=== PATIENT | male | born 1995 | race Hispanic/Latino ===

== ENCOUNTER 2024-10-28 13:58 | Emergency (ER) | payer OTHER ==
[~2024-10-28] VITALS: Ht 175.3 cm; Wt 77.6 kg
--- NOTE | 2024-10-28 14:07 | ERN ---
ED Note History of Present Illness Stated Complaint: DIARRHEA Chief Complaint: Diarrhea Time Seen by MD: 14:02 Dictation: PATIENT IS A 29-YEAR-OLD MALE WHO IS A RETIRED COMING IN WITH COMPLAINTS OF LEFT LOWER QUADRANT PAIN WITH DIARRHEA FOR TWO DAYS. HE STATES HE HAS HAD NO FEVER NO CHILLS HOWEVER STATES HE CAN NOT KEEP ANY FOOD DOWN BECAUSE WHEN HE EATS HE HAS DIARRHEA. HE STILL IS ON AZITHROMYCIN FOR BEING TREATED BY [facility] [employer] FOR STREPTOCOCCAL PHARYNGITIS FIVE DAYS AGO. Allergies: Coded Allergies: No Known Drug Allergies (Unverified Allergy, Unknown, 10/28/24) Home Meds Active Scripts Dicyclomine HCl (Bentyl) 20 Mg Tab, 20 MG PO Q6HPRN PRN for ABDOMINAL CRAMPING/PAIN, #20 TAB Prov:ALEXI CARDONA CLINICAL ASSISTANT PROFESSOR 10/28/24 Past Medical History Past Medical History: No Pertinent History Surgical History: None RN Note Reviewed/Agreed w/PFSH: Yes Review of System Dictation CONSTITUTIONAL: NEGATIVE EXCEPT FOR HPI HEAD/FACE: NEGATIVE EXCEPT FOR HPI EENT: NEGATIVE EXCEPT FOR HPI RESPIRATORY: NEGATIVE EXCEPT FOR HPI GASTROINTESTINAL/ABDOMINAL: NEGATIVE EXCEPT FOR HPI LEFT LOWER QUADRANT PAIN WITH DIARRHEA GENITOURINARY: NEGATIVE EXCEPT FOR HPI MUSCULOSKELETAL: NEGATIVE EXCEPT FOR HPI INTEGUMENTARY: NEGATIVE EXCEPT FOR HPI NEUROLOGICAL/PSYCH: NEGATIVE EXCEPT FOR HPI HEMATOLOGIC/LYMPHATIC: NEGATIVE EXCEPT FOR HPI ALL SYSTEMS NEGATIVE, EXCEPT NOTED ABOVE. 13 POINT REVIEW OF SYSTEMS ASSESSED AND ALL NEGATIVE EXCEPT FOR ABOVE. Initial Vital Sign VS Vital Signs Date Time Temp Pulse Resp B/P (MAP) Pulse Ox O2 Delivery O2 Flow Rate FiO2 10/28/24 14:02 98.4 78 19 139/82 98 Room Air 0 10/28/24 18:29 21 Physical Exam Dictation VITAL SIGNS REVIEWED GENERAL APPEARANCE: ALERT, ORIENTED X 3, MY ACUTE DISTRESS, WELL DEVELOPED, NOURISHED. HEAD AND FACE: NON-TRAUMATIC. EYES: PERRL, PINK CONJUNCTIVAS, EYELID NO TRAUMA, ANTERIOR CHAMBER WITH ARCUS SENILIS. EARS: PINNAS INTACT AND NO SIGNS OF TRAUMA OR ERYTHEMA EAR CANALS CLEAR AND NO DISCHARGE TM NO ERYTHEMA NOSE: NO DISCHARGE, NO BLEEDING. OROPHARYNX: MOUTH NORMAL, TONGUE PINK, PHARYNX CLEAR,NO ERYTHEMA, TONSILS NO EXUDATES, NO ABSCESSES NOTED, MUCOUS MEMBRANE MOIST NECK: SUPPLE, NON-TENDER, NO THYROMEGALY, NO MASSES, NO JVD, NO BRUITS BREAST:DEFERRED CHEST:NO TENDERNESS, NO CREPITUS, NO PARADOXICAL MOVEMENT, NO RETRACTIONS LUNGS:CLEAR, WELL-VENTILATED, SYMMETRIC, NO RALES, NO WHEEZING, NO RHONCHI, NO STRIDOR, GOOD BREATH SOUNDS BILATERALLY HEART: REGULAR RATE, REGULAR RHYTHM, NO MURMUR, NO GALLOPS VASCULAR: NO PERIPHERAL EDEMA, ABDOMEN: SOFT, POSITIVE BOWEL SOUNDS, NONDISTENDED, NO GUARDING, LEFT LOWER QUADRANT PAIN TENDERNESS WITH PALPATION RECTAL: DEFERRED GENITAL: DEFERRED NEUROLOGICAL: NORMAL SPEECH, MOTOR FUNCTION INTACT, SENSORY FUNCTION INTACT MUSCULOSKELETAL: NECK NONTENDER, FULL RANGE OF MOTION, BACK NONTENDER, FULL RANGE OF MOTION, EXTREMITIES: NONTENDER, FULL RANGE OF MOTION SKIN: COLOR PINK, DRY, NO TURGOR, NO RASH, NO LACERATIONS, NO ABRASIONS, NO CONTUSIONS. LYMPHATIC: DEFERRED Results (Laboratory/Radiology) Laboratory/Radiology Laboratory Tests Test 10/28/24 14:45 10/28/24 16:30 White Blood Count 6.7 K/uL (4.8-10.8) Red Blood Count 5.13 MIL/uL (4.50-6.20) Hemoglobin 15.2 g/dL (14.0-18.0) Hematocrit 44.3 % (42-54) Mean Corpuscular Volume 86.4 fL (79-99) Mean Corpuscular Hemoglobin 29.6 pg (27.0-33.0) Mean Corpuscular Hemoglobin Concent 34.3 g/dL (32.0-36.0) Red Cell Distribution Width 13.1 % (11.0-15.5) Platelet Count 290 K/uL (130-400) Mean Platelet Volume 8.7 fL (7.5-10.5) Immature Granulocyte % (Auto) 0.3 % (0-1) Neutrophils (%) (Auto) 49.8 % (40.0-77.0) Lymphocytes (%) (Auto) 36.5 % (21.0-51.0) Monocytes (%) (Auto) 10.8 % (3.0-13.0) Eosinophils (%) (Auto) 2.0 % (0.0-8.0) Basophils (%) (Auto) 0.6 % (0.0-5.0) Neutrophils # (Auto) 3.3 K/uL (1.8-7.7) Lymphocytes # (Auto) 2.4 K/uL (1.0-4.8) Monocytes # (Auto) 0.7 K/uL (0.1-1.0) Eosinophils # (Auto) 0.13 K/uL (0.00-0.70) Basophils # (Auto) 0.04 K/uL (0.00-0.20) Absolute Immature Granulocyte (auto 0.02 K/uL (0-1) Nucleated Red Blood Cells 0.0 % (0.0-0.19) Sodium Level 137 mmol/L (136-145) Potassium Level 3.3 mmol/L (3.5-5.1) L Chloride Level 99 mmol/L (101-111) L Carbon Dioxide Level 30 mmol/L (21-32) Blood Urea Nitrogen 14 mg/dL (7-18) Creatinine 1.1 mg/dL (0.5-1.3) Glomerular Filtration Rate Calc 92 mL/min (>90) Random Glucose 88 mg/dL (70-105) Total Calcium 9.1 mg/dL (8.5-10.1) Lipase 46 U/L (16-77) Urine Color YELLOW (YELLOW) Urine Appearance CLEAR (CLEAR) Urine pH 5.5 (5.0-8.0) Urine Specific [place] 1.023 (1.001-1.031) Urine Protein NEGATIVE mg/dL (NEGATIVE) Urine Glucose (UA) NEGATIVE mg/dL (NEGATIVE) Urine Ketones NEGATIVE mg/dL (NEGATIVE) Urine Occult Blood NEGATIVE (NEGATIVE) Urine Nitrate NEGATIVE (NEGATIVE) Urine Bilirubin NEGATIVE mg/dL (NEGATIVE) Urine Urobilinogen 0.2 mg/dL (0.2-1.0) Urine Leukocyte Esterase NEGATIVE Hamzah/uL CT ABDOMEN/PELVIS W/CONTRAST HISTORY: LEFT LOWER QUADRANT PAIN TENDERNESS TWO DAYS TECHNIQUE: CT ABDOMEN/PELVIS W/CONTRAST Omnipaque contrast was used. Oral contrast was not given. Coronal and sagittal reformats were obtained. CT was performed with one or more of the following dose reduction techniques: Automated exposure control, adjustment of the mA and/or kV according to the patient's size, or use of the iterative reconstruction technique. Comparison: None. FINDINGS: No pulmonary consolidation or pleural effusion is seen. There is hepatic steatosis. No calcified gallstone is seen. The spleen, pancreas, and adrenal glands are within normal limits. No hydronephrosis. The urinary bladder is partially distended. Reproductive organs are grossly within normal limits for patient's age. Fluid-filled loops of small bowel and colon suggesting enterocolitis in the proper clinical setting. No bowel obstruction is seen. Appendectomy changes are noted. Visualized aorta is normal in caliber. No acute osseous findings. IMPRESSION: Fluid-filled loops of small bowel and colon suggesting enterocolitis in the proper clinical setting. No bowel obstruction is seen. Labs Reviewed?: Yes ED Course ED Course Orders Procedure Category Date Status Time Cbc With Differential LAB 10/28/24 Complete 14:04 Urinalysis Profile LAB 10/28/24 Complete 14:04 Ct Abdomen/Pelvis CT 10/28/24 Resulted W/Contrast 14:04 0.9%Nacl 1000ml (Ns PHA 10/28/24 Complete 1000ml) 14:30 Ketorolac PHA 10/28/24 Complete Tromethamine 30mg/Ml 14:30 Lipase LAB 10/28/24 Complete 14:04 Basic Metabolic Panel LAB 10/28/24 Complete 14:04 Potassium Bicarb/Cit PHA 10/28/24 Complete Ac 25meq (K-Lyte Ta 15:30 Iohexol (Omnipaque) PHA 10/28/24 Complete 16:26 Current Medications Medications (Trade) Dose Ordered Sig/Pamela Route PRN Reason Start Time Stop Time Status Last Admin Dose Admin Iohexol (Omnipaque) 75 ml STK-MED ONCE IV 10/28/24 16:26 10/28/24 16:27 DC Ketorolac Tromethamine (toRADol) 30 mg ONCE ONCE IVP 10/28/24 14:30 10/28/24 14:31 DC 10/28/24 16:07 Potassium Bicarbonate (K-Lyte Tablet Eff 25 Meq Tablet.eff) 25 meq ONCE ONCE PO 10/28/24 15:30 10/28/24 15:31 DC 10/28/24 16:07 Sodium Chloride 1,000 ml @ 0 mls/hr ONCE ONCE IV 10/28/24 14:30 10/28/24 14:31 DC 10/28/24 16:07 Vital Signs Date Time Temp Pulse Resp B/P (MAP) Pulse Ox O2 Delivery O2 Flow Rate FiO2 10/28/24 18:29 98.2 76 16 127/79 99 Room Air* 0 21 10/28/24 14:02 98.4 78 19 139/82 98 Room Air 0 1735/[address] PATIENT HAD BEEN OUTSIDE FOR AN EXTENDED AMOUNT OF TIME. Medical Decision Making MDM 1805/MEDICAL DISCHARGE MAKING BASED ON BASIC LABS AND CT TO RULE OUT DIVERTICULITIS LABS ARE NEGATIVE CT SHOWS COLITIS ONLY PATIENT DISCHARGED HOME WITH VIRAL DIARRHEA SENT HOME WITH BENTYL FLUID REHYDRATION INSTRUCTIONS DX & DISP Disposition: Discharge Departure Impression: Primary Impression: Viral diarrhea Additional Impressions: Hypokalemia, Hypochloremia Condition: Stable Scripts Dicyclomine HCl (Bentyl) 20 Mg Tab 20 MG PO Q6HPRN PRN for ABDOMINAL CRAMPING/PAIN, #20 TAB Prov: ALEXI CARDONA CLINICAL ASSISTANT PROFESSOR 10/28/24 Additional Instructions: FOLLOW-UP WITH PRIMARY CARE PROVIDER IN 1 TO 2 DAYS. TAKE MEDICATIONS DIRECTED HERE IN THE EMERGENCY ROOM. OKAY TO CONTINUE HOME MEDICATIONS UNLESS OTHERWISE DISCUSSED DURING YOUR VISIT IN THE EMERGENCY ROOM TODAY. RETURN TO YOUR NEAREST EMERGENCY ROOM IF SYMPTOMS WORSEN OR IF THERE IS NO IMPROVEMENT. CALL 911 IF YOU NEED IMMEDIATE ASSISTANCE. TAKE TYLENOL OR MOTRIN [id number] NEEDED AND IF NO CONTRAINDICATIONS ARE PRESENT. INCREASE ORAL HYDRATION. A WOUND CULTURE OR URINE CULTURE WAS ORDERED HERE IN THE EMERGENCY ROOM DEPARTMENT PLEASE FOLLOW-UP WITH PRIMARY CARE PROVIDER AND ADVISE THEM TO GET REPEAT PORTS FROM OUR FACILITY. IF YOU HAD ANY KINZA WRAP/SPLINTS THAT WERE APPLIED HERE, PLEASE DO NOT REMOVE THEM UNTIL YOU SEE YOUR PRIMARY CARE OR SPECIALTY. CLEAR LIQUID DIET FOR THE NEXT 18 HOURS, THEN ADVANCE DIET BACK TO REGULAR. NO ICE TEA, NO SODA POP, NO COFFEE,. SEE YOUR PRIMARY CARE DOCTOR ON WEDNESDAY PATEL HANSEN FOR FOLLOW UP AND MANAGEMENT. Time of Disposition: 18:08 I have reviewed the case, and I agree with, Diagnosis and Plan ALEXI CARDONA NP Oct 28, 2024 14:07 JUNIE CAMACHO DO Oct 29, 2024 06:49
--- NOTE | 2024-10-28 14:25 | NUR ---
PATIENT IN ER LOBBY. PENDING GFR RESULTS, IV SITE, & CONSENT FOR CT EXAM.
[2024-10-28 15:03] LABS: BASOPHILS # (AUTO) 0.04 K/uL (0.00-0.20); BASOPHILS % (AUTO) 0.6 % (0.0-5.0); EOSINOPHILS # (AUTO) 0.13 K/uL (0.00-0.70); HEMATOCRIT 44.3 % (42-54); IMMATURE GRANULOCYTE ABSOLUTE 0.02 K/uL (0-1); LYMPHOCYTES # (AUTO) 2.4 K/uL (1.0-4.8); LYMPHOCYTES % (AUTO) 36.5 % (21.0-51.0); MEAN CORPUSCULAR HEMOGLOBIN 29.6 pg (27.0-33.0); MEAN CORPUSCULAR HGB CONC 34.3 g/dL (32.0-36.0); MEAN CORPUSCULAR VOLUME 86.4 fL (79-99); MONOCYTES # (AUTO) 0.7 K/uL (0.1-1.0); MONOCYTES % (AUTO) 10.8 % (3.0-13.0); NEUTROPHILS # (AUTO) 3.3 K/uL (1.8-7.7); NEUTROPHILS % (AUTO) 49.8 % (40.0-77.0); PLATELET COUNT (AUTO) 290 K/uL (130-400); RED BLOOD CELL COUNT(AUTO) 5.13 MIL/uL (4.50-6.20); RED CELL DISTRIBUTION WIDTH 13.1 % (11.0-15.5); WHITE BLOOD COUNT (AUTO) 6.7 K/uL (4.8-10.8)
[2024-10-28 15:13] LABS: CREATININE 1.1 mg/dL (0.5-1.3); POTASSIUM 3.3 mmol/L (3.5-5.1)
[2024-10-28] MEDS: ketOROlac 30MG VIAL (30MG/ML) IVP ONE (16:07)
[2024-10-28] MEDS: 0.9%NACL 1000ML 1,000 ML IV ONE (16:07)
[2024-10-28] MEDS: PoTASSium BIcarbonate/CIT AC 25 MEQ TABLET.EFF PO ONE (16:07)
[2024-10-28] MEDS ORDERED: IOHEXOL-350 75 ML VIAL IV ONE (16:26)
--- NOTE | 2024-10-28 16:51 | NUR ---
to ct at this time
[2024-10-28 17:02] LABS: APPEARANCE,URINE CLEAR (CLEAR); BILIRUBIN,URINE NEGATIVE (NEGATIVE); COLOR,URINE YELLOW (YELLOW); GLUCOSE, URINE (UA) NEGATIVE (NEGATIVE); KETONES,URINE NEGATIVE (NEGATIVE); LEUKOCYTE ESTERASE ,URINE NEGATIVE Leu/uL (NEGATIVE); NITRATE,URINE NEGATIVE (NEGATIVE); OCCULT BLOOD,URINE NEGATIVE (NEGATIVE); PH,URINE 5.5 (5.0-8.0); PROTEIN,URINE NEGATIVE (NEGATIVE); UROBILINOGEN,URINE 0.2 mg/dL (0.2-1.0)
[2024-10-28 17:03] LABS: ADD UA MICROSCOPIC NO
--- NOTE | 2024-10-28 17:41 | HMCIMG ---
CT ABDOMEN/PELVIS W/CONTRAST HISTORY: LEFT LOWER QUADRANT PAIN TENDERNESS TWO DAYS TECHNIQUE: CT ABDOMEN/PELVIS W/CONTRAST Omnipaque contrast was used. Oral contrast was not given. Coronal and sagittal reformats were obtained. CT was performed with one or more of the following dose reduction techniques: Automated exposure control, adjustment of the mA and/or kV according to the patient's size, or use of the iterative reconstruction technique. Comparison: None. FINDINGS: No pulmonary consolidation or pleural effusion is seen. There is hepatic steatosis. No calcified gallstone is seen. The spleen, pancreas, and adrenal glands are within normal limits. No hydronephrosis. The urinary bladder is partially distended. Reproductive organs are grossly within normal limits for patient's age. Fluid-filled loops of small bowel and colon suggesting enterocolitis in the proper clinical setting. No bowel obstruction is seen. Appendectomy changes are noted. Visualized aorta is normal in caliber. No acute osseous findings. IMPRESSION: Fluid-filled loops of small bowel and colon suggesting enterocolitis in the proper clinical setting. No bowel obstruction is seen.
[2024-10-28] MEDS ORDERED: DICY20TA2 PO (18:10)
[2024-10-28 18:29] VITALS: BP 127/79; PULSE 76; RESP 16; TEMP 98.2; O2SAT 99
== END 2024-10-28 18:29 | disposition home or self-care (01) ==
LOC: EDH 13:58
DX: A08.4 Viral intestinal infection, unspecified (principal); E87.6 Hypokalemia; E87.8 Other disorders of electrolyte and fluid balance, not elsewhere classified
CPT/HCPCS: 99285; 74177; 96374; 96361; 80048; 83690; 85025; 81003; 36415; J1885; J7030; Q9967